=== PATIENT | male | born 1950 | race Caucasian/White ===

== ENCOUNTER 2022-08-08 16:11 | Emergency (ER) | payer OTHER, SELFPAY ==
[2022-08-08 16:12] VITALS: BP 147/92; PULSE 86; TEMP 36.4; O2SAT 95; BMI 24.3
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
[2022-08-08] MEDS: iohexol 350 mg/mL 500 mL Btl (per mL) IV (16:46)
--- NOTE | 2022-08-08 17:01 | PC.PHAR ---
PT UNSURE OF THE NAMES AND MG OF HIS MEDICATIONS-PT [facility]FAXED [facility] FOR MED LIST
[2022-08-08] MEDS: tetanus-dipt-pertussis 0.5 mL SDV IM (18:01)
--- NOTE | 2022-08-16 07:52 | DCPLANNER ---
TCM called patient due to no primary care physician - no answer at this time.
== END 2022-08-08 18:48 | disposition home or self-care (01) ==
PROVIDERS: Emergency Provider Emergency Medicine
DX: S01.01XA Laceration without foreign body of scalp, initial encounter (principal); V29.408A Other motorcycle driver injured in collision with unspecified motor vehicles in traffic accident, initial encounter; Z23 Encounter for immunization
CPT/HCPCS: 12002; 70450; 71260; 72125; 74177; 90471; 90715; 99285; Q9967